=== PATIENT | male | born 1930 | race Caucasian/White ===

== ENCOUNTER 2017-09-18 18:29 | Inpatient (IN) | payer OTHER ==
[~2017-09-18] VITALS: Ht 193 cm; Wt 110.5 kg
[~2017-09-18 18:29] MED LIST: ASPIR-LOW81 MG PO; CALCIUM 600 +1 EAC2 PO; CARDIZEM30 MG PO; FLORINEF ACETA0.1 MG PO; GLUCOPHAGE500 MG PO; IRON 100-VITAM1 EACH PO; IRON325 MG PO; MILK OF MAGN PO; PRAVACHOL40 MG PO; PRILOSEC20 MG PO; PRILOSEC40 MG PO; PROAMATINE2.5 MG PO; TAMSULOSIN HCL0.4 MG PO; TERAZOSIN HCL2 MG PO; VITRON-C TABLE1 EACH PO
[2017-09-18 19:51] LABS: HEMATOCRIT 31.8 % (38.0-50.0); MCH 30.5 PG (29.0-34.0); MCHC 34.6 G/DL (30.0-36.0); MCV 88.1 FL (86-99); MEAN PLAT.VOLUME 9.3 uM^3 (9.0-12.4); PLATELET COUNT 191 K/uL (156-360); RBC DIS.WIDTH-CV 16.4 % (11.8-14.6); RBC DIS.WIDTH-SD 52.9 % (39-53); RED BLOOD COUNT 3.61 M/uL (4.00-5.50); WHITE BLOOD COUNT 9.2 K/uL (4.1-10.2)
[2017-09-18 20:01] LABS: CHLORIDE 105 mEq/L (99-109); POTASSIUM 3.8 mEq/L (3.7-5.4); SODIUM 140 mEq/L (136-147)
[2017-09-18 20:03] LABS: GLUCOSE 162 mg/dL (70-99)
[2017-09-18 20:04] LABS: ANION GAP 9 MEQ/L (2-14)
[2017-09-18 20:05] LABS: TOTAL BILIRUBIN 1.7 mg/dL (0.0-1.0)
[2017-09-18 20:06] LABS: ALKALINE PHOSPHATASE 112 IU/L (3-129)
[2017-09-18 20:07] LABS: GFR ESTIMATE (CALCULATED) > 59 mL/min/
[2017-09-18 20:08] LABS: UREA NITROGEN (BUN) 21 mg/dL (9-23)
[2017-09-18 20:32] LABS: ADD MIUA? YES; BILIRUBIN NEGATIVE; BLOOD NEGATIVE; COLOR AMBER ((YELLOW)); GLUCOSE (STRIP) NEGATIVE; KETONES NEGATIVE; LEUKOCYTES LARGE; NITRITE NEGATIVE; PROTEIN (STRIP) 100; SPECIFIC GRAVITY 1.019 (1.000-1.030)
[2017-09-18 20:45] LABS: BACTERIA 2+ /HPF; CASTS NONE SEEN /LPF; CRYSTALS NONE SEEN; EPITHELIAL CELLS RARE /HPF; MUCUS NONE SEEN /LPF; RED BLOOD CELLS 0-5 /HPF (0-5); WHITE BLOOD CELLS TNTC /HPF (0-5)
[2017-09-18] MEDS ORDERED: CARDIZEM30 MG PO (23:44)
[2017-09-18] MEDS ORDERED: REMEDY CALAZIM113 G2 TP (23:48)
[2017-09-18] MEDS ORDERED: ACETAMINOPHEN325 M1 PO (23:50)
[2017-09-19 06:40] LABS: HEMATOCRIT 29.7 % (38.0-50.0); MCH 30.7 PG (29.0-34.0); MCV 87.6 FL (86-99); MEAN PLAT.VOLUME 9.2 uM^3 (9.0-12.4); PLATELET COUNT 168 K/uL (156-360); RBC DIS.WIDTH-CV 16.3 % (11.8-14.6); RBC DIS.WIDTH-SD 51.8 % (39-53); RED BLOOD COUNT 3.39 M/uL (4.00-5.50)
[2017-09-19 06:52] LABS: CHLORIDE 106 mEq/L (99-109); POTASSIUM 3.4 mEq/L (3.7-5.4); SODIUM 138 mEq/L (136-147)
[2017-09-19 06:54] LABS: GLUCOSE 203 mg/dL (70-99)
[2017-09-19 06:55] LABS: ANION GAP 9 MEQ/L (2-14)
[2017-09-19 06:58] LABS: GFR ESTIMATE (CALCULATED) > 59 mL/min/
[2017-09-19 06:59] LABS: UREA NITROGEN (BUN) 17 mg/dL (9-23)
[2017-09-19 07:15] VITALS: BP 155/70
[2017-09-19 11:24] VITALS: BP 155/69
[2017-09-19 12:03] LABS: POINT-OF-CARE METER ID UU14208750
[2017-09-19 15:25] VITALS: BP 150/67
[2017-09-19 16:31] LABS: POINT-OF-CARE METER ID UU14314084
[2017-09-19 20:41] VITALS: BP 141/63
[2017-09-19 21:35] LABS: POINT-OF-CARE METER ID UU14208750
[2017-09-20 00:12] VITALS: BP 142/66
[2017-09-20 03:45] VITALS: BP 130/61
[2017-09-20 06:36] LABS: POINT-OF-CARE METER ID UU14208750
[2017-09-20 06:53] LABS: EOSINOPHIL (%) 0 % (0-5); HEMATOCRIT 29.8 % (38.0-50.0); IMMATURE GRANULOCYTE COUNT 0.1 K/uL; INSTRUMENT ABS NEUTROPHIL CT 9.9 K/uL; LYMPHOCYTE COUNT 0.8 K/uL (1.0-2.8); MCH 30.2 PG (29.0-34.0); MCHC 33.9 G/DL (30.0-36.0); MCV 89.2 FL (86-99); MEAN PLAT.VOLUME 9.8 uM^3 (9.0-12.4); MONOCYTE (%) 8.2 % (3-12); NEUTROPHIL (%) 83.7 % (45-76); NEUTROPHIL COUNT 9.9 K/uL (1.8-6.4); PLATELET COUNT 161 K/uL (156-360); RBC DIS.WIDTH-CV 16.5 % (11.8-14.6); RBC DIS.WIDTH-SD 53.7 % (39-53); RED BLOOD COUNT 3.34 M/uL (4.00-5.50); WHITE BLOOD COUNT 11.8 K/uL (4.1-10.2)
[2017-09-20 07:27] LABS: ANION GAP 10 MEQ/L (2-14); CHLORIDE 105 MEQ/L (99-109); GFR ESTIMATE (CALCULATED) > 59 mL/min/; GLUCOSE 176 mg/dL (70-99); POTASSIUM 3.3 MEQ/L (3.7-5.4); SAMPLE HEMOLYSIS CHECK 0; SAMPLE ICTERIC CHECK 0; SAMPLE LIPEMIA CHECK 0; SODIUM 138 MEQ/L (136-147); UREA NITROGEN (BUN) 19 mg/dL (9-23)
[2017-09-20 07:40] VITALS: BP 147/63
[2017-09-20 11:45] VITALS: BP 128/62
[2017-09-20 12:29] LABS: POINT-OF-CARE METER ID UU14314084; POINT-OF-CARE USER ID PUTDRM
[2017-09-20 16:30] VITALS: BP 138/74
[2017-09-20 16:36] LABS: POINT-OF-CARE METER ID UU14208750; POINT-OF-CARE USER ID PUTDRM
[2017-09-20 21:41] LABS: POINT-OF-CARE METER ID UU14162508
[2017-09-20 23:32] VITALS: BP 133/68
[2017-09-21 03:39] VITALS: BP 131/65
[2017-09-21 06:40] LABS: EOSINOPHIL (%) 0.8 % (0-5); EOSINOPHIL COUNT 0.1 K/uL (0-0.3); HEMATOCRIT 30.8 % (38.0-50.0); IMMATURE GRANULOCYTE (%) 0.7 % (0.0-0.7); IMMATURE GRANULOCYTE COUNT 0.1 K/uL; LYMPHOCYTE COUNT 1.1 K/uL (1.0-2.8); MCH 30.1 PG (29.0-34.0); MCHC 33.8 G/DL (30.0-36.0); MEAN PLAT.VOLUME 9.5 uM^3 (9.0-12.4); MONOCYTE (%) 10.1 % (3-12); MONOCYTE COUNT 0.9 K/uL (0-0.8); NEUTROPHIL (%) 76.5 % (45-76); PLATELET COUNT 171 K/uL (156-360); RBC DIS.WIDTH-CV 16.5 % (11.8-14.6); RBC DIS.WIDTH-SD 54.1 % (39-53); RED BLOOD COUNT 3.46 M/uL (4.00-5.50); WHITE BLOOD COUNT 9.2 K/uL (4.1-10.2)
[2017-09-21 06:58] LABS: POINT-OF-CARE METER ID UU14162508
[2017-09-21 07:14] LABS: ANION GAP 7 MEQ/L (2-14); CHLORIDE 107 MEQ/L (99-109); GFR ESTIMATE (CALCULATED) > 59 mL/min/; GLUCOSE 166 mg/dL (70-99); MAGNESIUM 1.6 mg/dl (1.3-2.7); SAMPLE HEMOLYSIS CHECK 0; SAMPLE ICTERIC CHECK 0; SAMPLE LIPEMIA CHECK 0; SODIUM 140 MEQ/L (136-147); UREA NITROGEN (BUN) 19 mg/dL (9-23)
[2017-09-21 08:00] VITALS: BP 126/74
[2017-09-21] MEDS ORDERED: INVANZ1 GM IV (10:40)
[2017-09-21 11:58] VITALS: BP 122/78
[2017-09-21 12:07] LABS: POINT-OF-CARE METER ID UU14162508; POINT-OF-CARE USER ID PUTDRM
== END 2017-09-21 14:48 | disposition home or self-care (01) | DRG 690 ==
LOC: EME 18:29 → 2EAST 09-19 02:10 → 2EASTP 09-19 02:10 → EDOF 09-19 02:10 → ENRESERV 09-19 02:12 → 2EASTP 09-19 07:15 → 2EAST 09-19 17:53
PROVIDERS: Emergency Medicine; Internal Medicine
DX: N39.0 Urinary tract infection, site not specified (principal); E11.621 Type 2 diabetes mellitus with foot ulcer; L97.419 Non-pressure chronic ulcer of right heel and midfoot with unspecified severity; B96.20 Unspecified Escherichia coli [E. coli] as the cause of diseases classified elsewhere; Z16.12 Extended spectrum beta lactamase (ESBL) resistance; R23.4 Changes in skin texture; E87.6 Hypokalemia; F03.90 Unspecified dementia, unspecified severity, without behavioral disturbance, psychotic disturbance, mood disturbance, and anxiety; B35.6 Tinea cruris; I10 Essential (primary) hypertension; I25.10 Atherosclerotic heart disease of native coronary artery without angina pectoris; N40.1 Benign prostatic hyperplasia with lower urinary tract symptoms; R32 Unspecified urinary incontinence; Z79.82 Long term (current) use of aspirin; Z79.84 Long term (current) use of oral hypoglycemic drugs; Z87.440 Personal history of urinary (tract) infections; Z87.891 Personal history of nicotine dependence; Z88.0 Allergy status to penicillin
CPT/HCPCS: 71010; 80048; 80053; 81003; 82948; 83605; 83735; 85025; 85027; 87077; 87086; 87186; 99281; 99285; A6021; J1335; J1644; J1815; J7030; J7050

== ENCOUNTER 2017-09-28 18:17 | Emergency (ER) | payer OTHER ==
[~2017-09-28] VITALS: Ht 193 cm; Wt 105.1 kg
[~2017-09-28 18:17] MED LIST changes: +ACETAMINOPHEN325 M1 PO; +INVANZ1 GM IV; +REMEDY CALAZIM113 G2 TP
[2017-09-28 18:55] LABS: HEMATOCRIT 29.2 % (38.0-50.0); MCHC 34.2 G/DL (30.0-36.0); MCV 87.7 FL (86-99); MEAN PLAT.VOLUME 8.9 uM^3 (9.0-12.4); PLATELET COUNT 218 K/uL (156-360); RBC DIS.WIDTH-CV 15.5 % (11.8-14.6); RBC DIS.WIDTH-SD 49.7 % (39-53); RED BLOOD COUNT 3.33 M/uL (4.00-5.50); WHITE BLOOD COUNT 6.1 K/uL (4.1-10.2)
[2017-09-28 19:06] LABS: CHLORIDE 105 mEq/L (99-109); POTASSIUM 3.7 mEq/L (3.7-5.4); SODIUM 137 mEq/L (136-147)
[2017-09-28 19:08] LABS: GLUCOSE 157 mg/dL (70-99)
[2017-09-28 19:09] LABS: ANION GAP 9 MEQ/L (2-14)
[2017-09-28 19:10] LABS: TOTAL BILIRUBIN 1.4 mg/dL (0.0-1.0)
[2017-09-28 19:11] LABS: ALKALINE PHOSPHATASE 89 IU/L (3-129)
[2017-09-28 19:12] LABS: GFR ESTIMATE (CALCULATED) 55 mL/min/
[2017-09-28 19:13] LABS: UREA NITROGEN (BUN) 19 mg/dL (9-23)
[2017-09-28 19:53] LABS: ADD MIUA? NO; BILIRUBIN NEGATIVE; BLOOD NEGATIVE; COLOR YELLOW ((YELLOW)); GLUCOSE (STRIP) NEGATIVE; KETONES NEGATIVE; LEUKOCYTES NEGATIVE; NITRITE NEGATIVE; PROTEIN (STRIP) NEGATIVE; SPECIFIC GRAVITY 1.011 (1.000-1.030); UCUL ADDED? NO
[2017-09-28] MEDS ORDERED: MIRALAX17 GM PO (23:01)
[2017-09-29 00:40] VITALS: BP 187/71
== END 2017-09-29 00:43 | disposition home or self-care (01) ==
LOC: EME 18:17
PROVIDERS: Emergency Medicine
PROC: 0T9B70Z Drainage of Bladder with Drainage Device, Via Natural or Artificial Opening (ICD-10-PCS; principal; 2017-09-28)
DX: R53.1 Weakness (principal); R33.9 Retention of urine, unspecified; R41.82 Altered mental status, unspecified; K59.00 Constipation, unspecified; N40.1 Benign prostatic hyperplasia with lower urinary tract symptoms; I10 Essential (primary) hypertension; E11.9 Type 2 diabetes mellitus without complications; Z87.440 Personal history of urinary (tract) infections; Z87.891 Personal history of nicotine dependence; Z88.0 Allergy status to penicillin; Z79.84 Long term (current) use of oral hypoglycemic drugs; Z79.82 Long term (current) use of aspirin
CPT/HCPCS: 70450; 71020; 71250; 80053; 81003; 83605; 85027; 87502; 93005; 99281; 99285

== ENCOUNTER 2017-10-06 21:57 | Observation (INO) | payer OTHER ==
[~2017-10-06] VITALS: Ht 190.5 cm; Wt 102.2 kg
[~2017-10-06 21:57] MED LIST changes: +MIRALAX17 GM PO
[2017-10-06 22:37] LABS: HEMATOCRIT 29.4 % (38.0-50.0); MCV 87.8 FL (86-99); MEAN PLAT.VOLUME 9.3 uM^3 (9.0-12.4); PLATELET COUNT 248 K/uL (156-360); RBC DIS.WIDTH-CV 15.4 % (11.8-14.6); RBC DIS.WIDTH-SD 49.3 % (39-53); RED BLOOD COUNT 3.35 M/uL (4.00-5.50); WHITE BLOOD COUNT 7.6 K/uL (4.1-10.2)
[2017-10-06 22:43] LABS: INTER. NORMALIZED RATIO 1.2; PROTHROMBIN TIME 13.9 SEC (10.2-12.9)
[2017-10-06 22:50] LABS: CHLORIDE 103 mEq/L (99-109); POTASSIUM 4.1 mEq/L (3.7-5.4); SODIUM 136 mEq/L (136-147)
[2017-10-06 22:52] LABS: GLUCOSE 164 mg/dL (70-99)
[2017-10-06 22:53] LABS: ANION GAP 11 MEQ/L (2-14)
[2017-10-06 22:56] LABS: GFR ESTIMATE (CALCULATED) 44 mL/min/; UREA NITROGEN (BUN) 31 mg/dL (9-23)
[2017-10-06 22:58] LABS: TROP-I INTERPRETATION NEGATIVE; TROPONIN-I < 0.01 ng/mL (0.0-0.30)
[2017-10-07] MEDS ORDERED: FLOMAX0.4 MG PO (00:11)
[2017-10-07] MEDS ORDERED: MIRALAX119 GM PO (00:13)
[2017-10-07] MEDS ORDERED: PROBIOTIC-10 370 MG PO (00:13)
[2017-10-07] MEDS ORDERED: TYLENOL EXTRA500 MG PO (00:14)
[2017-10-07 02:18] LABS: ADD MIUA? YES; BILIRUBIN NEGATIVE; BLOOD NEGATIVE; COLOR AMBER ((YELLOW)); GLUCOSE (STRIP) NEGATIVE; KETONES NEGATIVE; LEUKOCYTES MODERATE; NITRITE NEGATIVE; PROTEIN (STRIP) NEGATIVE; SPECIFIC GRAVITY 1.018 (1.000-1.030)
[2017-10-07 02:35] LABS: BACTERIA RARE /HPF; BUDDING YEAST 2+; EPITHELIAL CELLS NONE SEEN /HPF; MUCUS TRACE /LPF; RED BLOOD CELLS 0-5 /HPF (0-5); WHITE BLOOD CELLS 40-50 /HPF (0-5); WHITE BLOOD CELLS CLUMP RARE /HPF (0-5)
[2017-10-07 03:10] VITALS: BP 117/56
[2017-10-07 05:29] LABS: METH RESISTANT S AUREUS PCR NEGATIVE (NEGATIVE)
[2017-10-07 05:43] LABS: PROBE CHECK PASS; SPECIMEN PROCESSING CONTROL PASS
[2017-10-07 07:24] VITALS: BP 153/70
[2017-10-07 08:15] LABS: POINT-OF-CARE METER ID UU13113700
[2017-10-07 11:07] VITALS: BP 118/80; BP 121/57
[2017-10-07 11:48] LABS: ANION GAP 7 MEQ/L (2-14); CHLORIDE 107 MEQ/L (99-109); GFR ESTIMATE (CALCULATED) > 59 mL/min/; GLUCOSE 218 mg/dL (70-99); POTASSIUM 4.2 MEQ/L (3.7-5.4); SAMPLE HEMOLYSIS CHECK 0; SAMPLE ICTERIC CHECK 0; SAMPLE LIPEMIA CHECK 0; SODIUM 139 MEQ/L (136-147); UREA NITROGEN (BUN) 25 mg/dL (9-23)
[2017-10-07 13:01] LABS: POINT-OF-CARE METER ID UU14162513
[2017-10-07 16:20] LABS: POINT-OF-CARE METER ID UU14162513
[2017-10-07 16:29] VITALS: BP 141/63
[2017-10-07 20:40] VITALS: BP 155/67
[2017-10-07 23:03] LABS: POINT-OF-CARE METER ID UU13113831
[2017-10-08 08:01] VITALS: BP 163/72
[2017-10-08 08:22] LABS: POINT-OF-CARE METER ID UU13113831
[2017-10-08 11:50] VITALS: BP 190/82
[2017-10-08 12:19] LABS: POINT-OF-CARE METER ID UU13113831
[2017-10-08 14:09] VITALS: BP 149/67
== END 2017-10-08 16:12 ==
LOC: EME → EDBD 21:57 → EME 21:57 → EDOF 10-07 00:58 → 5WEST 10-07 00:58 → ENRESERV 10-07 01:01 → 5WEST 10-07 02:37
PROVIDERS: Emergency Medicine; Internal Medicine
DX: I95.1 Orthostatic hypotension (principal); E86.0 Dehydration; N17.9 Acute kidney failure, unspecified; N40.1 Benign prostatic hyperplasia with lower urinary tract symptoms; R33.9 Retention of urine, unspecified; J98.11 Atelectasis; Z87.440 Personal history of urinary (tract) infections; E11.9 Type 2 diabetes mellitus without complications; Z86.31 Personal history of diabetic foot ulcer; I48.91 Unspecified atrial fibrillation; F03.90 Unspecified dementia, unspecified severity, without behavioral disturbance, psychotic disturbance, mood disturbance, and anxiety; G47.33 Obstructive sleep apnea (adult) (pediatric); R09.02 Hypoxemia; Z99.3 Dependence on wheelchair; R26.9 Unspecified abnormalities of gait and mobility; Z16.12 Extended spectrum beta lactamase (ESBL) resistance; K21.9 Gastro-esophageal reflux disease without esophagitis; K22.70 Barrett's esophagus without dysplasia; Z87.442 Personal history of urinary calculi; K59.09 Other constipation; Z79.82 Long term (current) use of aspirin; Z79.84 Long term (current) use of oral hypoglycemic drugs; Z88.0 Allergy status to penicillin
CPT/HCPCS: 71020; 80048; 81003; 82948; 83880; 84484; 85027; 85610; 85730; 87641; 93005; 99281; 99285; G0378; J1644; J1815; J1956; J7030; J7040

== ENCOUNTER 2017-10-31 11:41 | Emergency (ER) | payer OTHER ==
[~2017-10-31] VITALS: Ht 193 cm; Wt 96.1 kg
[~2017-10-31 11:41] MED LIST changes: +FLOMAX0.4 MG PO; +MIRALAX119 GM PO; +PROBIOTIC-10 370 MG PO; +TYLENOL EXTRA500 MG PO
[2017-10-31 12:34] LABS: EOSINOPHIL (%) 0.2 % (0-5); HEMATOCRIT 30.8 % (38.0-50.0); IMMATURE GRANULOCYTE (%) 0.8 % (0.0-0.7); INSTRUMENT ABS NEUTROPHIL CT 4.2 K/uL; LYMPHOCYTE COUNT 0.6 K/uL (1.0-2.8); MCH 28.4 PG (29.0-34.0); MCHC 33.1 G/DL (30.0-36.0); MCV 85.8 FL (86-99); MEAN PLAT.VOLUME 8.8 uM^3 (9.0-12.4); MONOCYTE (%) 6.8 % (3-12); MONOCYTE COUNT 0.4 K/uL (0-0.8); NEUTROPHIL (%) 79.4 % (45-76); NEUTROPHIL COUNT 4.2 K/uL (1.8-6.4); PLATELET COUNT 301 K/uL (156-360); RBC DIS.WIDTH-CV 17.9 % (11.8-14.6); RED BLOOD COUNT 3.59 M/uL (4.00-5.50); WHITE BLOOD COUNT 5.3 K/uL (4.1-10.2)
[2017-10-31 12:40] LABS: INTER. NORMALIZED RATIO 1.2; PROTHROMBIN TIME 13.5 SEC (10.2-12.9)
[2017-10-31 12:43] LABS: PTT 28.7 SEC (25-37)
[2017-10-31 12:45] LABS: CHLORIDE 105 mEq/L (99-109); POTASSIUM 4.2 mEq/L (3.7-5.4); SODIUM 137 mEq/L (136-147)
[2017-10-31 12:46] LABS: MAGNESIUM 1.7 mg/dL (1.3-2.7)
[2017-10-31 12:47] LABS: GLUCOSE 150 mg/dL (70-99)
[2017-10-31 12:48] LABS: ANION GAP 9 MEQ/L (2-14)
[2017-10-31 12:50] LABS: GFR ESTIMATE (CALCULATED) > 59 mL/min/ (58.99-99999)
[2017-10-31 12:51] LABS: UREA NITROGEN (BUN) 16 mg/dL (9-23)
[2017-10-31 12:55] LABS: TROP-I INTERPRETATION NEGATIVE; TROPONIN-I < 0.01 ng/mL (0.0-0.30)
[2017-10-31 14:03] LABS: ADD MIUA? YES; BILIRUBIN NEGATIVE; BLOOD NEGATIVE; COLOR YELLOW ((YELLOW)); GLUCOSE (STRIP) NEGATIVE; KETONES NEGATIVE; LEUKOCYTES MODERATE; NITRITE NEGATIVE; PROTEIN (STRIP) NEGATIVE; SPECIFIC GRAVITY 1.015 (1.000-1.030)
[2017-10-31 14:10] LABS: BACTERIA RARE /HPF; EPITHELIAL CELLS RARE /HPF; HYALINE CASTS 0-5 /LPF; MUCUS TRACE /LPF; UCUL ADDED? YES; WHITE BLOOD CELLS 40-50 /HPF (0-5)
[2017-10-31 16:50] VITALS: BP 123/63
== END 2017-10-31 17:00 | disposition home or self-care (01) ==
LOC: EME 11:41
PROVIDERS: Emergency Medicine
DX: N39.0 Urinary tract infection, site not specified (principal); Z87.440 Personal history of urinary (tract) infections; E11.9 Type 2 diabetes mellitus without complications; I10 Essential (primary) hypertension; Z87.442 Personal history of urinary calculi; K21.9 Gastro-esophageal reflux disease without esophagitis; F41.9 Anxiety disorder, unspecified; F03.90 Unspecified dementia, unspecified severity, without behavioral disturbance, psychotic disturbance, mood disturbance, and anxiety; Z79.84 Long term (current) use of oral hypoglycemic drugs; Z79.82 Long term (current) use of aspirin; Z88.0 Allergy status to penicillin; Z87.891 Personal history of nicotine dependence
CPT/HCPCS: 71010; 80048; 81003; 83605; 83735; 84484; 85025; 85610; 85730; 87040; 87086; 93005; 99281; 99285; J1335; J7030; J7050

== ENCOUNTER 2017-11-13 19:29 | Inpatient (IN) | payer OTHER ==
[~2017-11-13] VITALS: Ht 172.7 cm; Wt 90.7 kg
[2017-11-13 20:33] LABS: HEMOGLOBIN 9.5 G/DL (12.5-16.6); MCH 29.2 PG (29.0-34.0); MCHC 33.9 G/DL (30.0-36.0); MCV 86.2 FL (86-99); RBC DIS.WIDTH-CV 18.9 % (11.8-14.6); RBC DIS.WIDTH-SD 58.6 % (39-53); RED BLOOD COUNT 3.25 M/uL (4.00-5.50); WHITE BLOOD COUNT 7.5 K/uL (4.1-10.2)
[2017-11-13 20:41] LABS: CHLORIDE 103 mEq/L (99-109); POTASSIUM 3.9 mEq/L (3.7-5.4); SODIUM 137 mEq/L (136-147)
[2017-11-13 20:43] LABS: GLUCOSE 216 mg/dL (70-99); TOTAL PROTEIN 5.7 g/dL (6.4-8.3)
[2017-11-13 20:45] LABS: TOTAL BILIRUBIN 1.8 mg/dL (0.0-1.0)
[2017-11-13 20:47] LABS: ALKALINE PHOSPHATASE 149 IU/L (3-129); CREATININE 0.8 mg/dL (0.6-1.3); GFR ESTIMATE (CALCULATED) > 59 mL/min/ (58.99-99999)
[2017-11-13 20:48] LABS: UREA NITROGEN (BUN) 29 mg/dL (9-23)
[2017-11-13 20:49] LABS: AST (GOT) 83 IU/L (2-34)
[2017-11-13 20:50] LABS: ALT (GPT) 106 IU/L (3-49)
[2017-11-13 20:51] LABS: TROP-I INTERPRETATION NEGATIVE; TROPONIN-I 0.02 ng/mL (0.0-0.30)
[2017-11-13 21:23] LABS: LIPASE 10 U/L (1.0-51.0)
[2017-11-13 22:07] LABS: PLAT.SUFFICIENCY ADEQUATE
[2017-11-13 22:11] LABS: PLATELET COUNT 172 K/uL (156-360)
[2017-11-13 23:29] LABS: APPEARANCE SL.HAZY ((CLEAR)); BILIRUBIN NEGATIVE; BLOOD NEGATIVE; COLOR AMBER ((YELLOW)); GLUCOSE (STRIP) NEGATIVE; KETONES NEGATIVE; LEUKOCYTES MODERATE; NITRITE NEGATIVE; PROTEIN (STRIP) NEGATIVE
[2017-11-13 23:50] LABS: RED BLOOD CELLS 0-5 /HPF (0-5)
[2017-11-13 23:51] LABS: BACTERIA NONE SEEN /HPF; EPITHELIAL CELLS RARE /HPF; MUCUS NONE SEEN /LPF; UCUL ADDED? YES
[2017-11-14 00:05] LABS: SPECIFIC GRAVITY 1.051 (1.000-1.030)
[2017-11-14] MEDS ORDERED: ZOLOFT25 MG PO (00:17)
[2017-11-14] MEDS ORDERED: MILK OF MAGN PO (00:21)
[2017-11-14] MEDS ORDERED: ENSURE CLEAR296 ML PO (00:22)
[2017-11-14 03:27] LABS: TROP-I INTERPRETATION NEGATIVE; TROPONIN-I < 0.01 ng/mL (0.0-0.30)
[2017-11-14 09:10] LABS: HEMATOCRIT 28.5 % (38.0-50.0); HEMOGLOBIN 9.4 G/DL (12.5-16.6); PLATELET COUNT 194 K/uL (156-360); RBC DIS.WIDTH-CV 19.7 % (11.8-14.6); RBC DIS.WIDTH-SD 62.4 % (39-53); RED BLOOD COUNT 3.24 M/uL (4.00-5.50); WHITE BLOOD COUNT 6.8 K/uL (4.1-10.2)
[2017-11-14 09:32] LABS: CHLORIDE 106 mEq/L (99-109); POTASSIUM 4.3 mEq/L (3.7-5.4); SODIUM 141 mEq/L (136-147); TROP-I INTERPRETATION NEGATIVE; TROPONIN-I < 0.01 ng/mL (0.0-0.30)
[2017-11-14 09:34] LABS: GLUCOSE 144 mg/dL (70-99); TOTAL PROTEIN 5.4 g/dL (6.4-8.3)
[2017-11-14 09:38] LABS: ALKALINE PHOSPHATASE 137 IU/L (3-129); CREATININE 0.8 mg/dL (0.6-1.3); GFR ESTIMATE (CALCULATED) > 59 mL/min/ (58.99-99999)
[2017-11-14 09:39] LABS: AST (GOT) 49 IU/L (2-34); TOTAL BILIRUBIN 1.3 mg/dL (0.0-1.0); UREA NITROGEN (BUN) 25 mg/dL (9-23)
[2017-11-14 09:55] LABS: ALT (GPT) 88 IU/L (3-49); DIRECT BILIRUBIN 0.8 mg/dL (0.0-0.3)
[2017-11-14 11:28] VITALS: BP 138/62
[2017-11-14 16:00] VITALS: BP 131/64
[2017-11-14 19:45] VITALS: BP 114/61
[2017-11-14 23:25] VITALS: BP 132/60
[2017-11-15 03:35] VITALS: BP 128/66
[2017-11-15 06:32] LABS: ALBUMIN 2.7 G/DL (3.2-4.8); ALKALINE PHOSPHATASE 109 IU/L (3-129); ALT (GPT) 51 IU/L (3-49); AST (GOT) 29 IU/L (2-34); CHLORIDE 106 MEQ/L (99-109); CREATININE 0.7 MG/DL (0.6-1.3); GFR ESTIMATE (CALCULATED) > 59 mL/min/ (58.99-99999); SODIUM 138 MEQ/L (136-147); TOTAL BILIRUBIN 1.3 MG/DL (0.0-1.0); UREA NITROGEN (BUN) 22 mg/dL (9-23)
[2017-11-15 06:33] LABS: GLUCOSE 102 mg/dL (70-99)
[2017-11-15 08:09] LABS: HEMATOCRIT 25.6 % (38.0-50.0); HEMOGLOBIN 8.4 G/DL (12.5-16.6); MCH 29.1 PG (29.0-34.0); MCHC 32.8 G/DL (30.0-36.0); MCV 88.6 FL (86-99); PLATELET COUNT 159 K/uL (156-360); RBC DIS.WIDTH-CV 19.2 % (11.8-14.6); RBC DIS.WIDTH-SD 61.8 % (39-53); RED BLOOD COUNT 2.89 M/uL (4.00-5.50); WHITE BLOOD COUNT 4.6 K/uL (4.1-10.2)
[2017-11-15 11:16] VITALS: BP 138/67
[2017-11-15 15:37] VITALS: BP 135/66
[2017-11-15 20:09] VITALS: BP 138/67
[2017-11-15 23:41] VITALS: BP 138/59
[2017-11-16 03:07] VITALS: BP 149/59
[2017-11-16 07:40] VITALS: BP 138/62
[2017-11-16 11:11] LABS: HEMATOCRIT 24.3 % (38.0-50.0); HEMOGLOBIN 8.1 G/DL (12.5-16.6); MCH 28.7 PG (29.0-34.0); MCHC 33.3 G/DL (30.0-36.0); MCV 86.2 FL (86-99); PLATELET COUNT 197 K/uL (156-360); RBC DIS.WIDTH-SD 59.6 % (39-53); RED BLOOD COUNT 2.82 M/uL (4.00-5.50); WHITE BLOOD COUNT 3.5 K/uL (4.1-10.2)
[2017-11-16 11:21] VITALS: BP 158/67
[2017-11-16 11:47] LABS: ALBUMIN 2.5 G/DL (3.2-4.8); ALKALINE PHOSPHATASE 98 IU/L (3-129); ALT (GPT) 33 IU/L (3-49); AST (GOT) 17 IU/L (2-34); CHLORIDE 103 MEQ/L (99-109); CREATININE 0.7 MG/DL (0.6-1.3); GFR ESTIMATE (CALCULATED) > 59 mL/min/ (58.99-99999); POTASSIUM 3.3 MEQ/L (3.7-5.4); SODIUM 135 MEQ/L (136-147); TOTAL BILIRUBIN 1.1 MG/DL (0.0-1.0); TOTAL PROTEIN 4.7 G/DL (6.4-8.3); UREA NITROGEN (BUN) 15 mg/dL (9-23)
[2017-11-16 11:54] LABS: GLUCOSE 208 mg/dL (70-99)
[2017-11-16 15:37] VITALS: BP 165/75
[2017-11-16 20:22] VITALS: BP 146/74
[2017-11-17 00:30] VITALS: BP 154/78
[2017-11-17 04:14] VITALS: BP 141/65
[2017-11-17 08:00] VITALS: BP 140/76
[2017-11-17 11:37] LABS: HEMATOCRIT 25.7 % (38.0-50.0); HEMOGLOBIN 8.8 G/DL (12.5-16.6); IMM.RETIC FRACTION 9.2 % (3-19); MCH 29.5 PG (29.0-34.0); MCHC 34.2 G/DL (30.0-36.0); MCV 86.2 FL (86-99); PLATELET COUNT 182 K/uL (156-360); RBC DIS.WIDTH-CV 19.1 % (11.8-14.6); RBC DIS.WIDTH-SD 59.7 % (39-53); RED BLOOD COUNT 2.98 M/uL (4.00-5.50); RETIC HGB EQUIVALENT 30.9 (28-36); WHITE BLOOD COUNT 3.8 K/uL (4.1-10.2)
[2017-11-17 11:40] LABS: RETICULOCYTE COUNT 2.5 % (0.5-1.8)
[2017-11-17 12:00] VITALS: BP 158/66
[2017-11-17 12:04] LABS: ALBUMIN 2.8 G/DL (3.2-4.8); ALKALINE PHOSPHATASE 110 IU/L (3-129); ALT (GPT) 28 IU/L (3-49); AST (GOT) 15 IU/L (2-34); CHLORIDE 102 MEQ/L (99-109); CREATININE 0.7 MG/DL (0.6-1.3); GFR ESTIMATE (CALCULATED) > 59 mL/min/ (58.99-99999); GLUCOSE 193 mg/dL (70-99); POTASSIUM 3.3 MEQ/L (3.7-5.4); SODIUM 135 MEQ/L (136-147); UREA NITROGEN (BUN) 10 mg/dL (9-23)
[2017-11-17 12:20] LABS: FERRITIN 708 NG/ML (22-322)
[2017-11-17 12:26] LABS: FOLIC ACID (FOLATE) 7.7 NG/ML (5.0-22.0)
[2017-11-17] MEDS ORDERED: METRONIDAZOLE500 MG PO (12:31)
[2017-11-17] MEDS ORDERED: CIPROFLOXACIN250 MG PO (12:31)
[2017-11-17 13:12] LABS: IRON 38 MCG/DL (35-150); TRANSFERRIN (TIBC) 110.7 mg/dL (215-380); TRANSFERRIN SATUR. 34 % (20-55)
[2017-11-17 16:00] VITALS: BP 188/85
[2017-11-17 20:38] VITALS: BP 188/86
[2017-11-18 00:07] VITALS: BP 153/79
[2017-11-18 05:03] LABS: HEMATOCRIT 25.5 % (38.0-50.0); HEMOGLOBIN 8.7 G/DL (12.5-16.6); MCH 29.1 PG (29.0-34.0); MCHC 34.1 G/DL (30.0-36.0); MCV 85.3 FL (86-99); PLATELET COUNT 197 K/uL (156-360); RBC DIS.WIDTH-CV 18.9 % (11.8-14.6); RBC DIS.WIDTH-SD 58.2 % (39-53); RED BLOOD COUNT 2.99 M/uL (4.00-5.50); WHITE BLOOD COUNT 4.2 K/uL (4.1-10.2)
[2017-11-18 05:16] LABS: ALBUMIN 2.9 g/dL (3.2-4.8)
[2017-11-18 05:17] LABS: CHLORIDE 104 mEq/L (99-109); POTASSIUM 3.2 mEq/L (3.7-5.4); SODIUM 134 mEq/L (136-147)
[2017-11-18 05:19] LABS: GLUCOSE 132 mg/dL (70-99)
[2017-11-18 05:21] LABS: TOTAL BILIRUBIN 1.1 mg/dL (0.0-1.0)
[2017-11-18 05:23] LABS: ALKALINE PHOSPHATASE 118 IU/L (3-129); CREATININE 0.7 mg/dL (0.6-1.3); GFR ESTIMATE (CALCULATED) > 59 mL/min/ (58.99-99999)
[2017-11-18 05:24] LABS: UREA NITROGEN (BUN) 10 mg/dL (9-23)
[2017-11-18 05:26] LABS: ALT (GPT) 31 IU/L (3-49)
[2017-11-18 05:31] LABS: AST (GOT) 21 IU/L (2-34)
[2017-11-18 08:00] VITALS: BP 162/74
[2017-11-18 16:00] VITALS: BP 115/63
[2017-11-19] VITALS: BP 160/76
[2017-11-19 06:41] LABS: HEMATOCRIT 26.4 % (38.0-50.0); HEMOGLOBIN 8.8 G/DL (12.5-16.6); MCH 28.1 PG (29.0-34.0); MCHC 33.3 G/DL (30.0-36.0); MCV 84.3 FL (86-99); PLATELET COUNT 215 K/uL (156-360); RBC DIS.WIDTH-SD 58.2 % (39-53); RED BLOOD COUNT 3.13 M/uL (4.00-5.50); WHITE BLOOD COUNT 6.1 K/uL (4.1-10.2)
[2017-11-19 07:06] VITALS: BP 142/72
[2017-11-19 07:09] LABS: ALBUMIN 2.8 G/DL (3.2-4.8); ALKALINE PHOSPHATASE 116 IU/L (3-129); ALT (GPT) 25 IU/L (3-49); CHLORIDE 100 MEQ/L (99-109); CREATININE 0.7 MG/DL (0.6-1.3); GFR ESTIMATE (CALCULATED) > 59 mL/min/ (58.99-99999); GLUCOSE 184 mg/dL (70-99); POTASSIUM 3.6 MEQ/L (3.7-5.4); SODIUM 135 MEQ/L (136-147); TOTAL BILIRUBIN 1.2 MG/DL (0.0-1.0); TOTAL PROTEIN 5.2 G/DL (6.4-8.3); UREA NITROGEN (BUN) 13 mg/dL (9-23)
[2017-11-19 07:19] LABS: AST (GOT) 25 IU/L (2-34)
[2017-11-19 08:41] LABS: ALBUMIN 2.8 G/DL (3.2-4.8); ALKALINE PHOSPHATASE 115 IU/L (3-129); ALT (GPT) 26 IU/L (3-49); AST (GOT) 24 IU/L (2-34); DIRECT BILIRUBIN 0.4 mg/dL (0.0-0.3); TOTAL BILIRUBIN 1.2 MG/DL (0.0-1.0); TOTAL PROTEIN 5.2 G/DL (6.4-8.3)
[2017-11-19 15:09] VITALS: BP 142/58
[2017-11-19 20:52] VITALS: BP 125/59
[2017-11-20 00:10] VITALS: BP 103/54
[2017-11-20 04:49] VITALS: BP 122/58
[2017-11-20 06:50] LABS: ALBUMIN 2.6 G/DL (3.2-4.8); ALKALINE PHOSPHATASE 98 IU/L (3-129); ALT (GPT) 20 IU/L (3-49); AST (GOT) 16 IU/L (2-34); BASOPHIL (%) 0.2 % (0-1); CHLORIDE 98 MEQ/L (99-109); CREATININE 0.8 MG/DL (0.6-1.3); EOSINOPHIL (%) 0.5 % (0-5); EOSINOPHIL COUNT 0.1 K/uL (0-0.3); GFR ESTIMATE (CALCULATED) > 59 mL/min/ (58.99-99999); GLUCOSE 157 mg/dL (70-99); HEMATOCRIT 24.1 % (38.0-50.0); LYMPHOCYTE (%) 8.3 % (15-42); LYMPHOCYTE COUNT 0.9 K/uL (1.0-2.8); MCH 28.7 PG (29.0-34.0); MCHC 33.2 G/DL (30.0-36.0); MCV 86.4 FL (86-99); MONOCYTE COUNT 0.9 K/uL (0-0.8); NEUTROPHIL COUNT 8.4 K/uL (1.8-6.4); PLATELET COUNT 251 K/uL (156-360); POTASSIUM 3.7 MEQ/L (3.7-5.4); RBC DIS.WIDTH-CV 19.7 % (11.8-14.6); RBC DIS.WIDTH-SD 60.8 % (39-53); RED BLOOD COUNT 2.79 M/uL (4.00-5.50); SODIUM 134 MEQ/L (136-147); TOTAL BILIRUBIN 1.1 MG/DL (0.0-1.0); TOTAL PROTEIN 4.9 G/DL (6.4-8.3); UREA NITROGEN (BUN) 18 mg/dL (9-23); WHITE BLOOD COUNT 10.4 K/uL (4.1-10.2)
[2017-11-20 08:14] VITALS: BP 122/56
[2017-11-20 11:37] VITALS: BP 124/55
[2017-11-20 17:13] VITALS: BP 127/66
[2017-11-20 23:55] VITALS: BP 108/53
[2017-11-21 06:34] LABS: BASOPHIL (%) 0.1 % (0-1); EOSINOPHIL (%) 0.7 % (0-5); EOSINOPHIL COUNT 0.1 K/uL (0-0.3); HEMATOCRIT 22.9 % (38.0-50.0); HEMOGLOBIN 7.5 G/DL (12.5-16.6); IMMATURE GRANULOCYTE (%) 0.9 % (0.0-0.7); LYMPHOCYTE (%) 8.5 % (15-42); LYMPHOCYTE COUNT 0.8 K/uL (1.0-2.8); MCH 28.4 PG (29.0-34.0); MCHC 32.8 G/DL (30.0-36.0); MCV 86.7 FL (86-99); MONOCYTE (%) 7.9 % (3-12); MONOCYTE COUNT 0.8 K/uL (0-0.8); NEUTROPHIL (%) 81.9 % (45-76); NEUTROPHIL COUNT 7.9 K/uL (1.8-6.4); PLATELET COUNT 245 K/uL (156-360); RBC DIS.WIDTH-CV 19.8 % (11.8-14.6); RBC DIS.WIDTH-SD 62.6 % (39-53); RED BLOOD COUNT 2.64 M/uL (4.00-5.50); WHITE BLOOD COUNT 9.7 K/uL (4.1-10.2)
[2017-11-21 06:37] LABS: CHLORIDE 101 MEQ/L (99-109); CREATININE 0.9 MG/DL (0.6-1.3); GFR ESTIMATE (CALCULATED) > 59 mL/min/ (58.99-99999); GLUCOSE 122 mg/dL (70-99); POTASSIUM 3.8 MEQ/L (3.7-5.4); SODIUM 135 MEQ/L (136-147); UREA NITROGEN (BUN) 20 mg/dL (9-23)
[2017-11-21 08:05] VITALS: BP 140/62
[2017-11-21 09:50] LABS: ALBUMIN 2.5 G/DL (3.2-4.8); ALKALINE PHOSPHATASE 92 IU/L (3-129); ALT (GPT) 18 IU/L (3-49); AST (GOT) 19 IU/L (2-34); DIRECT BILIRUBIN 0.3 mg/dL (0.0-0.3); TOTAL BILIRUBIN 0.9 MG/DL (0.0-1.0); TOTAL PROTEIN 4.6 G/DL (6.4-8.3)
[2017-11-21 16:58] VITALS: BP 135/60
[2017-11-21 19:18] VITALS: BP 134/65
[2017-11-21 23:38] VITALS: BP 136/64
[2017-11-22 04:20] VITALS: BP 132/66
[2017-11-22 08:00] VITALS: BP 110/64
[2017-11-22 09:02] LABS: HEMATOCRIT 24.3 % (38.0-50.0); HEMOGLOBIN 8.1 G/DL (12.5-16.6); MCH 28.9 PG (29.0-34.0); MCHC 33.3 G/DL (30.0-36.0); MCV 86.8 FL (86-99); PLATELET COUNT 225 K/uL (156-360); RBC DIS.WIDTH-CV 19.3 % (11.8-14.6); RBC DIS.WIDTH-SD 60.8 % (39-53); WHITE BLOOD COUNT 6.1 K/uL (4.1-10.2)
[2017-11-22 09:33] LABS: ALBUMIN 2.5 G/DL (3.2-4.8); ALKALINE PHOSPHATASE 83 IU/L (3-129); ALT (GPT) 16 IU/L (3-49); AST (GOT) 16 IU/L (2-34); CHLORIDE 100 MEQ/L (99-109); CREATININE 0.8 MG/DL (0.6-1.3); GFR ESTIMATE (CALCULATED) > 59 mL/min/ (58.99-99999); GLUCOSE 103 mg/dL (70-99); POTASSIUM 3.8 MEQ/L (3.7-5.4); SODIUM 136 MEQ/L (136-147); TOTAL BILIRUBIN 0.9 MG/DL (0.0-1.0); TOTAL PROTEIN 4.7 G/DL (6.4-8.3); UREA NITROGEN (BUN) 12 mg/dL (9-23)
[2017-11-22 16:00] VITALS: BP 124/67
[2017-11-23 00:54] VITALS: BP 128/80
[2017-11-23 08:06] VITALS: BP 126/82
[2017-11-23] MEDS ORDERED: BISAC-EVAC10 MG PR (14:39)
[2017-11-23] MEDS ORDERED: POLYETHYLENE GL17 GM PO (14:39)
[2017-11-23] MEDS ORDERED: NOVOLOG PE100 UNITS/ SC (14:40)
[2017-11-23] MEDS ORDERED: DOCUSATE SODIU100 MG PO (14:40)
[2017-11-23] MEDS ORDERED: Vitamin B-12 SL (14:41)
[2017-11-23] MEDS ORDERED: FOLIC ACID1 MG PO (14:41)
[2017-11-23] MEDS ORDERED: DUONEB 2.5-0.5 M3 ML AEROSOL (14:45)
[2017-11-23] MEDS ORDERED: ULTRAM50 MG PO (14:46)
[2017-11-23 16:31] VITALS: BP 128/80
== END 2017-11-23 18:23 | DRG 444 ==
LOC: DELPENDDIS → EME 19:29 → 4SOUTH 11-14 01:15 → EDOF 11-14 01:15 → ENRESERV 11-14 01:17 → 4SOUTH 11-14 11:08 → ENPENDDIS 11-17 → 4SOUTH 11-23 18:23
PROVIDERS: Hospitalist; Nurse Practitioner Family; Student in an Organized Health Care Education/Training Program; Surgery
PROC: 0F9430Z Drainage of Gallbladder with Drainage Device, Percutaneous Approach (ICD-10-PCS; principal; 2017-11-19)
DX: K80.00 Calculus of gallbladder with acute cholecystitis without obstruction (principal); L89.629 Pressure ulcer of left heel, unspecified stage; L89.619 Pressure ulcer of right heel, unspecified stage; J69.0 Pneumonitis due to inhalation of food and vomit; L89.322 Pressure ulcer of left buttock, stage 2; L89.312 Pressure ulcer of right buttock, stage 2; I48.0 Paroxysmal atrial fibrillation; E11.621 Type 2 diabetes mellitus with foot ulcer; E86.0 Dehydration; K22.70 Barrett's esophagus without dysplasia; K59.09 Other constipation; E46 Unspecified protein-calorie malnutrition; N20.0 Calculus of kidney; D64.9 Anemia, unspecified; R32 Unspecified urinary incontinence; K56.41 Fecal impaction; K82.8 Other specified diseases of gallbladder; E11.9 Type 2 diabetes mellitus without complications; K21.9 Gastro-esophageal reflux disease without esophagitis; N40.0 Benign prostatic hyperplasia without lower urinary tract symptoms; N32.89 Other specified disorders of bladder; G47.33 Obstructive sleep apnea (adult) (pediatric); F03.90 Unspecified dementia, unspecified severity, without behavioral disturbance, psychotic disturbance, mood disturbance, and anxiety; Z99.3 Dependence on wheelchair; I10 Essential (primary) hypertension; L22 Diaper dermatitis; Z87.891 Personal history of nicotine dependence; Z79.84 Long term (current) use of oral hypoglycemic drugs; Z87.442 Personal history of urinary calculi; Z87.440 Personal history of urinary (tract) infections; Z68.30 Body mass index [BMI] 30.0-30.9, adult; Z79.899 Other long term (current) drug therapy; Z88.0 Allergy status to penicillin
CPT/HCPCS: 49405; 71045; 71046; 74018; 74177; 76705; 80048; 80053; 80076; 81003; 82607; 82728; 82746; 82948; 83540; 83605; 83690; 84466; 84484; 85025; 85027; 85046; 86850; 86900; 86901; 87040; 87070; 87075; 87086; 87106; 87205; 93005; 99202; 99281; 99285; A6214; C1729; C1769; J0696; J0744; J1335; J1644; J2270; J2405; J3010; J3480; J7040; J7050; J7120; S0028; S0030

== ENCOUNTER → 2017-12-14 | Outpatient (CLI) | payer OTHER ==
[~2017-12-14] MED LIST changes: +BISAC-EVAC10 MG PR; +CIPROFLOXACIN250 MG PO; +DOCUSATE SODIU100 MG PO; +DUONEB 2.5-0.5 M3 ML AEROSOL; +ENSURE CLEAR296 ML PO; +FOLIC ACID1 MG PO; +METRONIDAZOLE500 MG PO; +NOVOLOG PE100 UNITS/ SC; +POLYETHYLENE GL17 GM PO; +ULTRAM50 MG PO; +Vitamin B-12 SL; +ZOLOFT25 MG PO
== END | disposition home or self-care (01) ==
LOC: AMB 12:00
PROC: 0DCP7ZZ Extirpation of Matter from Rectum, Via Natural or Artificial Opening (ICD-10-PCS; principal; 2017-12-14)
DX: Z45.89 Encounter for adjustment and management of other implanted devices (principal); K82.9 Disease of gallbladder, unspecified; L89.159 Pressure ulcer of sacral region, unspecified stage; K56.41 Fecal impaction; R32 Unspecified urinary incontinence; R15.9 Full incontinence of feces
CPT/HCPCS: 99214

== ENCOUNTER 2017-12-31 17:37 | Inpatient (IN) | payer OTHER ==
[~2017-12-31] VITALS: Ht 193 cm; Wt 77.3 kg
[2017-12-31 19:01] LABS: BASOPHIL (%) 0.4 % (0-1); EOSINOPHIL (%) 0.2 % (0-5); HEMATOCRIT 25.1 % (38.0-50.0); HEMOGLOBIN 8.3 G/DL (12.5-16.6); IMMATURE GRANULOCYTE (%) 0.4 % (0.0-0.7); LYMPHOCYTE (%) 10.3 % (15-42); LYMPHOCYTE COUNT 0.6 K/uL (1.0-2.8); MCH 28.3 PG (29.0-34.0); MCHC 33.1 G/DL (30.0-36.0); MCV 85.7 FL (86-99); MONOCYTE (%) 8.6 % (3-12); MONOCYTE COUNT 0.5 K/uL (0-0.8); NEUTROPHIL (%) 80.1 % (45-76); NEUTROPHIL COUNT 4.4 K/uL (1.8-6.4); PLATELET COUNT 235 K/uL (156-360); RBC DIS.WIDTH-CV 18.3 % (11.8-14.6); RBC DIS.WIDTH-SD 56.4 % (39-53); RED BLOOD COUNT 2.93 M/uL (4.00-5.50); WHITE BLOOD COUNT 5.5 K/uL (4.1-10.2)
[2017-12-31 19:25] LABS: ALBUMIN 2.3 G/DL (3.2-4.8); CHLORIDE 104 MEQ/L (99-109); POTASSIUM 3.9 MEQ/L (3.7-5.4); SODIUM 137 MEQ/L (136-147); TOTAL BILIRUBIN 2.5 MG/DL (0.0-1.0)
[2017-12-31 19:31] LABS: ALKALINE PHOSPHATASE 610 IU/L (3-129); ALT (GPT) 49 IU/L (3-49); AST (GOT) 129 IU/L (2-34); GFR ESTIMATE (CALCULATED) > 59 mL/min/ (58.99-99999); GLUCOSE 119 mg/dL (70-99); LIPASE 9 U/L (1.0-51.0); TOTAL PROTEIN 5.2 G/DL (6.4-8.3); UREA NITROGEN (BUN) 15 mg/dL (9-23)
[2017-12-31] MEDS ORDERED: HUMALOG100 UNIT/2 SC (23:18)
[2017-12-31] MEDS ORDERED: DEPAKOTE SPRIN125 MG PO (23:32)
[2017-12-31] MEDS ORDERED: REMERON15 M2 PO (23:33)
[2017-12-31] MEDS ORDERED: MIRALAX17 GM PO (23:34)
[2017-12-31] MEDS ORDERED: K-DUR20 MEQ PO (23:39)
[2018-01-01 00:20] LABS: APPEARANCE CLOUDY ((CLEAR)); BILIRUBIN SMALL; BLOOD SMALL; GLUCOSE (STRIP) NEGATIVE; KETONES NEGATIVE; LEUKOCYTES LARGE; NITRITE POSITIVE; PROTEIN (STRIP) 30
[2018-01-01 00:29] LABS: COLOR DK YELLOW ((YELLOW))
[2018-01-01 00:50] LABS: BACTERIA 1+ /HPF; EPITHELIAL CELLS RARE /HPF; MUCUS NONE SEEN /LPF; RED BLOOD CELLS 0-5 /HPF (0-5); UCUL ADDED? YES; WHITE BLOOD CELLS TNTC /HPF (0-5)
[2018-01-01 07:03] LABS: HEMOGLOBIN 7.9 G/DL (12.5-16.6); MCH 28.6 PG (29.0-34.0); MCHC 32.9 G/DL (30.0-36.0); PLATELET COUNT 227 K/uL (156-360); RBC DIS.WIDTH-CV 18.6 % (11.8-14.6); RBC DIS.WIDTH-SD 58.3 % (39-53); RED BLOOD COUNT 2.76 M/uL (4.00-5.50); WHITE BLOOD COUNT 6.7 K/uL (4.1-10.2)
[2018-01-01 07:35] LABS: ALBUMIN 2.2 G/DL (3.2-4.8); ALKALINE PHOSPHATASE 565 IU/L (3-129); ALT (GPT) 57 IU/L (3-49); AST (GOT) 102 IU/L (2-34); CHLORIDE 106 MEQ/L (99-109); CREATININE 0.9 MG/DL (0.6-1.3); GFR ESTIMATE (CALCULATED) > 59 mL/min/ (58.99-99999); GLUCOSE 109 mg/dL (70-99); POTASSIUM 4.2 MEQ/L (3.7-5.4); SODIUM 137 MEQ/L (136-147); TOTAL BILIRUBIN 2.3 MG/DL (0.0-1.0); UREA NITROGEN (BUN) 16 mg/dL (9-23)
[2018-01-01 17:18] VITALS: BP 104/56
[2018-01-01 19:47] VITALS: BP 120/59
[2018-01-01 23:25] VITALS: BP 137/60
[2018-01-02 04:09] VITALS: BP 150/67
[2018-01-02 06:42] LABS: HEMATOCRIT 21.9 % (38.0-50.0); MCH 27.9 PG (29.0-34.0); MCV 87.3 FL (86-99); PLATELET COUNT 212 K/uL (156-360); RBC DIS.WIDTH-CV 18.6 % (11.8-14.6); RBC DIS.WIDTH-SD 58.8 % (39-53); RED BLOOD COUNT 2.51 M/uL (4.00-5.50); WHITE BLOOD COUNT 5.2 K/uL (4.1-10.2)
[2018-01-02 07:15] VITALS: BP 149/70
[2018-01-02 07:15] LABS: ALBUMIN 2.1 G/DL (3.2-4.8); ALT (GPT) 40 IU/L (3-49); CHLORIDE 102 MEQ/L (99-109); CREATININE 0.8 MG/DL (0.6-1.3); GFR ESTIMATE (CALCULATED) > 59 mL/min/ (58.99-99999); GLUCOSE 85 mg/dL (70-99); POTASSIUM 3.7 MEQ/L (3.7-5.4); SODIUM 137 MEQ/L (136-147); TOTAL PROTEIN 4.6 G/DL (6.4-8.3); UREA NITROGEN (BUN) 17 mg/dL (9-23)
[2018-01-02 07:22] LABS: ALKALINE PHOSPHATASE 383 IU/L (3-129); AST (GOT) 46 IU/L (2-34); TOTAL BILIRUBIN 1.1 MG/DL (0.0-1.0)
[2018-01-02 11:00] VITALS: BP 109/68
[2018-01-02 16:27] VITALS: BP 98/60
[2018-01-02 20:30] VITALS: BP 108/56
[2018-01-02 23:44] VITALS: BP 129/63
[2018-01-03 06:09] LABS: HEMATOCRIT 20.9 % (38.0-50.0); MCH 28.5 PG (29.0-34.0); MCHC 32.5 G/DL (30.0-36.0); MCV 87.4 FL (86-99); PLATELET COUNT 187 K/uL (156-360); RBC DIS.WIDTH-CV 18.5 % (11.8-14.6); RBC DIS.WIDTH-SD 59.6 % (39-53); RED BLOOD COUNT 2.39 M/uL (4.00-5.50); WHITE BLOOD COUNT 4.4 K/uL (4.1-10.2)
[2018-01-03 06:10] LABS: HEMOGLOBIN 6.8 G/DL (12.5-16.6)
[2018-01-03 06:25] LABS: ALBUMIN 1.9 G/DL (3.2-4.8); ALKALINE PHOSPHATASE 311 IU/L (3-129); ALT (GPT) 28 IU/L (3-49); AST (GOT) 26 IU/L (2-34); CHLORIDE 107 MEQ/L (99-109); CREATININE 0.7 MG/DL (0.6-1.3); GFR ESTIMATE (CALCULATED) > 59 mL/min/ (58.99-99999); GLUCOSE 88 mg/dL (70-99); POTASSIUM 3.4 MEQ/L (3.7-5.4); SODIUM 138 MEQ/L (136-147); TOTAL BILIRUBIN 0.9 MG/DL (0.0-1.0); TOTAL PROTEIN 4.4 G/DL (6.4-8.3); UREA NITROGEN (BUN) 13 mg/dL (9-23)
[2018-01-03 07:42] VITALS: BP 141/63
[2018-01-03 15:00] VITALS: BP 149/65
[2018-01-03 15:51] VITALS: BP 149/65
[2018-01-03 16:08] VITALS: BP 155/69
[2018-01-03 17:08] VITALS: BP 143/67
[2018-01-03 18:44] VITALS: BP 143/67
[2018-01-04 06:26] LABS: BASOPHIL (%) 0.7 % (0-1); EOSINOPHIL (%) 1.1 % (0-5); EOSINOPHIL COUNT 0.1 K/uL (0-0.3); HEMATOCRIT 24.8 % (38.0-50.0); HEMOGLOBIN 8.2 G/DL (12.5-16.6); IMMATURE GRANULOCYTE (%) 0.9 % (0.0-0.7); LYMPHOCYTE (%) 21.4 % (15-42); LYMPHOCYTE COUNT 0.9 K/uL (1.0-2.8); MCH 28.1 PG (29.0-34.0); MCHC 33.1 G/DL (30.0-36.0); MCV 84.9 FL (86-99); MONOCYTE (%) 13.9 % (3-12); MONOCYTE COUNT 0.6 K/uL (0-0.8); NEUTROPHIL COUNT 2.7 K/uL (1.8-6.4); PLATELET COUNT 174 K/uL (156-360); RBC DIS.WIDTH-CV 18.2 % (11.8-14.6); RBC DIS.WIDTH-SD 56.8 % (39-53); WHITE BLOOD COUNT 4.4 K/uL (4.1-10.2)
[2018-01-04 06:36] LABS: RED BLOOD COUNT 2.92 M/uL (4.00-5.50)
[2018-01-04 06:50] VITALS: BP 152/72
[2018-01-04 07:02] LABS: ALBUMIN 1.9 G/DL (3.2-4.8); ALKALINE PHOSPHATASE 268 IU/L (3-129); ALT (GPT) 21 IU/L (3-49); AST (GOT) 18 IU/L (2-34); CHLORIDE 105 MEQ/L (99-109); CREATININE 0.7 MG/DL (0.6-1.3); GFR ESTIMATE (CALCULATED) > 59 mL/min/ (58.99-99999); GLUCOSE 89 mg/dL (70-99); POTASSIUM 3.4 MEQ/L (3.7-5.4); SODIUM 138 MEQ/L (136-147); TOTAL PROTEIN 4.6 G/DL (6.4-8.3); UREA NITROGEN (BUN) 9 mg/dL (9-23)
[2018-01-04 15:30] VITALS: BP 160/83
[2018-01-04] MEDS ORDERED: PRILOSEC20 MG PO (15:49)
[2018-01-04] MEDS ORDERED: DEPAKOTE SPRIN125 MG PO (15:49)
[2018-01-04] MEDS ORDERED: FERROUS SULFAT325 MG PO (15:49)
[2018-01-04] MEDS ORDERED: ZOLOFT25 MG PO (15:49)
[2018-01-04] MEDS ORDERED: FLOMAX0.4 MG PO (15:49)
[2018-01-04] MEDS ORDERED: GLUCOPHAGE500 MG PO (15:49)
[2018-01-04] MEDS ORDERED: ASPIR-LOW81 MG PO (15:49)
[2018-01-04] MEDS ORDERED: CALCIUM 600 +1 EAC2 PO (15:49)
[2018-01-04] MEDS ORDERED: CEREFOLIN TABL1 EACH PO (15:49)
[2018-01-04] MEDS ORDERED: REMERON15 M2 PO (15:49)
[2018-01-04] MEDS ORDERED: ACETAMINOPHEN325 M1 PO (15:49)
[2018-01-04] MEDS ORDERED: SANTYL30 GM TP (16:38)
== END 2018-01-04 17:10 | disposition home or self-care (01) | DRG 445 ==
LOC: EME 17:37 → EDOF 23:16 → ENRESERV 23:47 → 5EAST 01-01 16:58
PROVIDERS: Emergency Medicine; Internal Medicine; Surgery
PROC: 30233N1 Transfusion of Nonautologous Red Blood Cells into Peripheral Vein, Percutaneous Approach (ICD-10-PCS; principal; 2018-01-03)
DX: K80.10 Calculus of gallbladder with chronic cholecystitis without obstruction (principal); T85.628A Displacement of other specified internal prosthetic devices, implants and grafts, initial encounter; I95.9 Hypotension, unspecified; E88.09 Other disorders of plasma-protein metabolism, not elsewhere classified; L89.610 Pressure ulcer of right heel, unstageable; L89.150 Pressure ulcer of sacral region, unstageable; I48.0 Paroxysmal atrial fibrillation; R82.71 Bacteriuria; B96.20 Unspecified Escherichia coli [E. coli] as the cause of diseases classified elsewhere; R62.7 Adult failure to thrive; Y82.8 Other medical devices associated with adverse incidents; I10 Essential (primary) hypertension; G30.9 Alzheimer's disease, unspecified; F02.80 Dementia in other diseases classified elsewhere, unspecified severity, without behavioral disturbance, psychotic disturbance, mood disturbance, and anxiety; E11.9 Type 2 diabetes mellitus without complications; I25.10 Atherosclerotic heart disease of native coronary artery without angina pectoris; K21.9 Gastro-esophageal reflux disease without esophagitis; N40.0 Benign prostatic hyperplasia without lower urinary tract symptoms; R32 Unspecified urinary incontinence; D64.9 Anemia, unspecified; F32.9 Major depressive disorder, single episode, unspecified; F41.9 Anxiety disorder, unspecified; K56.41 Fecal impaction; R26.9 Unspecified abnormalities of gait and mobility; Z16.12 Extended spectrum beta lactamase (ESBL) resistance; Z87.440 Personal history of urinary (tract) infections; Z87.442 Personal history of urinary calculi; Z87.891 Personal history of nicotine dependence; Z90.79 Acquired absence of other genital organ(s); Z91.81 History of falling; Z79.82 Long term (current) use of aspirin; Z88.0 Allergy status to penicillin
CPT/HCPCS: 70450; 74177; 80053; 81003; 82948; 83605; 83690; 85025; 85025 91; 85027; 86850; 86900; 86901; 86920; 87040; 87077; 87086; 87186; 92526 GN; 92610 GN; 99202; 99281; 99285; C1755; J1170; J1335; J2405; J7030; J7040; J7050; P9016